=== PATIENT | female | born 1955 | race Two or more races ===

== ENCOUNTER 2024-08-31 06:08 | Outpatient (CLI) | payer OTHER ==
[2024-08-31 07:14] LABS: BASO % 0.4 % (0.1-1.2); EOS # 0.13 (0.04-0.54); EOS % 2.5 % (0.7-7.0); LYMPH # 1.79 (1.18-3.74); LYMPH % 35.0 % (19.3-53.1); MEAN PLATELET VOLUME 11.20 fl (9.4-12.4); MONO # 0.47 (0.24-0.82); MONO % 9.2 % (4.7-12.5); NEUT # 2.69 (1.56-6.13); NEUT % 52.7 % (34.0-71.1); RED CELL DISTRIBUTION WIDTH 12.9 % (11.6-14.4)
[2024-08-31 07:26] LABS: URINE APPEARANCE Cloudy; URINE BILIRRUBIN Negative (NEGATIVE); URINE BLOOD Negative; URINE COLOR Yellow; URINE GLUCOSE Negative (NEGATIVE); URINE KETONE Negative (NEGATIVE); URINE LEUKOCYTE Trace; URINE NITRATE Negative; URINE PROTEIN Negative (NEGATIVE); URINE UROBILINOGEN 0.2 E.U./dl
[2024-08-31 07:27] LABS: URINE EPITHELIAL CELLS 13.8 uL (0.0-38.8); URINE RBC 1091.1 uL (0.0-20.8); URINE WBC 16.4 uL (0.0-23.2)
[2024-08-31 07:34] LABS: INR 0.99
[2024-08-31 07:35] LABS: URINE BACTERIA > 9821.5 uL (0.0-1933); URINE CAST 0.14 uL (0.0-1.40)
[2024-08-31 07:48] LABS: COL EPI 96 SECONDS (82-175)
[2024-08-31 08:01] LABS: ALT/SGPT 36.0 U/L (12-78); AST/SGOT 20.0 U/L (15-37); BILIRUBIN TOTAL 0.82 mg/dL (0.3-1.2); BUN CREA RATIO 27.0 (7.0-25.0); CREATININE SERUM 0.67 mg/dL (0.55-1.02); GFR 87.53; GLOBULINA 3.3 G/DL (2.4-3.5); GLUCOSE FASTING 98.0 mg/dL (65-100); OSMOLALITY SERUM 289.0 MOSM/KG (275-295)
== END 2024-08-31 06:15 | disposition home or self-care (01) ==
LOC: RAD 06:08
PROVIDERS: ATTEND Orthopaedic Surgery
DX: D64.9 Anemia, unspecified (principal); E88.9 Metabolic disorder, unspecified; D68.8 Other specified coagulation defects; N39.0 Urinary tract infection, site not specified; Z22.322 Carrier or suspected carrier of Methicillin resistant Staphylococcus aureus; Z76.89 Persons encountering health services in other specified circumstances; I20.0 Unstable angina

== ENCOUNTER 2024-08-31 07:13 | Outpatient (CLI) | payer OTHER | END 2024-08-31 07:14 | disposition home or self-care (01) | LOC: NUCLEAR 07:13 | PROVIDERS: ATTEND Orthopaedic Surgery | DX: M25.561 Pain in right knee (principal) | CPT/HCPCS: 78315; A9503 ==

== ENCOUNTER 2024-08-31 10:27 | Outpatient (CLI) | payer OTHER | END 2024-08-31 10:36 | disposition home or self-care (01) | LOC: TOM 10:27 | PROVIDERS: ATTEND Orthopaedic Surgery | DX: D49.2 Neoplasm of unspecified behavior of bone, soft tissue, and skin (principal) ==

== ENCOUNTER 2024-09-08 11:11 | Outpatient (CLI) | payer OTHER | END 2024-09-08 11:22 | disposition home or self-care (01) | LOC: TOM 11:11 | PROVIDERS: ATTEND Orthopaedic Surgery | DX: Z76.89 Persons encountering health services in other specified circumstances (principal) ==